=== PATIENT | female | born 1960 | race Caucasian/White ===

== ENCOUNTER 2017-05-15 07:00 | Outpatient (CLI) | payer SELFPAY ==
[~2017-05-15 07:00] MED LIST: HYDR25CA PO; IBUP-1986 PO; MELA3TAB PO
[2017-05-15 07:34] LABS: HEMOGLOBIN A1C 5.8 % (4.5-6.2)
[2017-05-15 08:29] LABS: CHOL/HDL RATIO 5.05 (0.00-4.99)
== END 2017-05-15 23:59 | disposition home or self-care (01) ==
LOC: HW HEART 07:00
DX: Z00.00 Encounter for general adult medical examination without abnormal findings (principal)
CPT/HCPCS: 36415

== ENCOUNTER 2018-08-15 08:33 | Outpatient (CLI) | payer MEDICARE ==
[2018-08-15 09:28] LABS: BASOPHILS % (AUTO) 0.7 % (0-1); EOSINOPHILS # (AUTO) 0.1 X10'3 (0-0.9); EOSINOPHILS % (AUTO) 1.3 % (0-6); HEMATOCRIT 41.5 % (35.0-45.0); HEMOGLOBIN 14.2 g/dl (12.0-16.0); LYMPHOCYTES # (AUTO) 2.7 X10'3 (1.1-4.8); LYMPHOCYTES % (AUTO) 49.4 % (21-51); MEAN CORPUSCULAR HGB CONC 34.1 g/dL (33.0-36.5); MEAN CORPUSCULAR VOLUME 90.7 FL (78-98); MEAN PLATELET VOLUME 7.1 FL (7.4-10.4); MONOCYTES # (AUTO) 0.4 X10'3 (0-0.9); MONOCYTES % (AUTO) 6.6 % (2-12); NEUTROPHILS # (AUTO) 2.3 X10'3 (1.8-7.7); PLATELET COUNT 252 X10'3 (140-440); RED BLOOD COUNT 4.57 X10'6 (4.20-5.60); RED CELL DISTRIBUTION WIDTH 12.9 % (11.5-14.5); WHITE BLOOD COUNT 5.4 X10'3 (4.5-11.0)
[2018-08-15 09:41] LABS: ALANINE AMINOTRANSFERASE 29 U/L (12-78); ALBUMIN 3.6 G/DL (3.4-5.0); ALBUMIN/GLOBULIN RATIO 1.1 (1.1-1.5); ALKALINE PHOSPHATASE 79 IU/L (46-116); ANION GAP 9 (8-16); ASPARTATE AMINO TRANSFERASE 17 U/L (10-37); BILIRUBIN,TOTAL 0.3 MG/DL (0.1-1.0); BLOOD UREA NITROGEN 18 MG/DL (7-18); BUN/CREATININE RATIO 19.1 (6.6-38.0); CALCIUM 9.2 MG/DL (8.5-10.1); CHLORIDE 106 MMOL/L (99-107); CREATININE 0.94 MG/DL (0.40-0.90); GLUCOSE 113 MG/DL (70-104); POTASSIUM 3.6 MMOL/L (3.5-5.1); SODIUM 140 MMOL/L (135-145); TOTAL PROTEIN 6.9 G/DL (6.4-8.2); eGFR 61 ML/MIN
[2018-08-15 09:46] LABS: PARTIAL THROMBOPLASTIN TIME 25 SECONDS (22-32)
== END 2018-08-15 23:59 | disposition home or self-care (01) ==
LOC: LAB 08:33
DX: D69.1 Qualitative platelet defects (principal)
CPT/HCPCS: 36415; 80053; 85025; 85576; 85610; 85730

== ENCOUNTER 2023-07-30 08:44 | Day surgery (SDC) | payer MEDICARE, MEDICAID ==
[2023-07-26 10:50] LABS: BASOPHILS % (AUTO) 0.5 % (0-1); EOSINOPHILS # (AUTO) 0.1 X10'3 (0-0.9); EOSINOPHILS % (AUTO) 1.2 % (0-6); LYMPHOCYTES # (AUTO) 3.1 X10'3 (1.1-4.8); LYMPHOCYTES % (AUTO) 44.4 % (21-51); MEAN CORPUSCULAR HEMOGLOBIN 32.3 PG (27.0-31.0); MEAN CORPUSCULAR HGB CONC 33.3 g/dL (33.0-36.5); MEAN CORPUSCULAR VOLUME 97.1 FL (78-98); MEAN PLATELET VOLUME 6.9 FL (7.4-10.4); MONOCYTES # (AUTO) 0.5 X10'3 (0-0.9); MONOCYTES % (AUTO) 6.7 % (2-12); NEUTROPHILS # (AUTO) 3.3 X10'3 (1.8-7.7); NEUTROPHILS % (AUTO) 47.2 % (42-75); PRE OP HEMOGLOBIN 13.6 g/dL (12.0-16.0); PRE OP PLATELET COUNT 245 X10'3 (140-440); PRE OP WHITE BLOOD COUNT 6.9 10'3 (4.8-10.8); RED BLOOD COUNT 4.22 X10'6 (4.20-5.60)
[2023-07-26 11:18] LABS: ALBUMIN 3.8 G/DL (3.4-5.0); ALBUMIN/GLOBULIN RATIO 1.2 (1.1-1.5); ALKALINE PHOSPHATASE 85 IU/L (46-116); BLOOD UREA NITROGEN 19 MG/DL (7-18); BUN/CREATININE RATIO 23.5 (10.0-20.0); CALCIUM 9.9 MG/DL (8.5-10.1); CHLORIDE 105 MMOL/L (99-107); CREATININE 0.81 MG/DL (0.40-0.90); PRE OP ALT 32 U/L (30-65); PRE OP ANION GAP 10 (8-16); PRE OP AST 22 U/L (10-37); PRE OP BILIRUB, TOTAL 0.3 MG/DL (0.0-1.0); PRE OP GLUCOSE 89 MG/DL (70-104); PRE OP POTASSIUM 4.3 MMOL/L (3.4-5.1); PRE OP SODIUM 143 MMOL/L (135-145); TOTAL CARBON DIOXIDE 28.1 MMOL/L (24-32); TOTAL PROTEIN 6.9 G/DL (6.4-8.2); eGFR 71 ML/MIN
[~2023-07-30] VITALS: Ht 172.7 cm; Wt 81.1 kg
[2023-07-30] MEDS: cefazolin 2gm/D5W 100mL 100 ML IV ONE (05:30)
[~2023-07-30 08:44] MED LIST changes: +BACL10TA2 PO; +GABA300T28 PO; +HYDR-3964 PO; -HYDR25CA PO; -IBUP-1986 PO; +LATA2.5D14 EACHEYE; -MELA3TAB PO; +MELA3TAB39 PO
[2023-07-30] MEDS: famotidine 20mg tablet PO ONE (09:25)
[2023-07-30] MEDS: ringers solution, lacted 1,000 ML IV SCH (09:26)
[2023-07-30 09:30] VITALS: BP 120/72; PULSE 69; RESP 16; TEMP 98.5; O2SAT 98
[2023-07-30] MEDS ORDERED: ondansetron/PF 4mg/2ml inj IV PRN (10:00)
[2023-07-30] MEDS ORDERED: morphine 4 MG/ML inj SYRINge IV PRN (10:00)
[2023-07-30] MEDS ORDERED: labetalol 20mg/4ml (5mg/ml) syringe IV PRN (10:00)
[2023-07-30] MEDS ORDERED: morphine 2 MG/ML inj. syringe IV PRN (10:00)
[2023-07-30] MEDS ORDERED: ringers solution, lacted 1,000 ML IV SCH (10:00)
[2023-07-30] MEDS ORDERED: propofol 10mg/ml 20ml vial IV ONE (10:01)
[2023-07-30] MEDS ORDERED: fentaNYL/PF 50MCG/1 ML 2ML syringe ONE (10:03)
[2023-07-30] MEDS ORDERED: midazolam 1 mg/ML 2ml injection ONE (10:04)
[2023-07-30] MEDS ORDERED: ondansetron/PF 4mg/2ml inj ONE (10:09)
[2023-07-30 10:30] VITALS: BP 103/53; PULSE 75; RESP 16; O2SAT 98
[2023-07-30] MEDS: LIDOcaine 2% (20mg/ml) 5ml vial ONE (10:37)
[2023-07-30] MEDS: BUPIVAcaine/PF 2.5mg/ml (0.25%) 10ml vial ONE (10:37)
[2023-07-30 10:40] VITALS: BP 105/58; PULSE 79; RESP 18; O2SAT 95
[2023-07-30 10:50] VITALS: BP 106/61; PULSE 65; RESP 14; O2SAT 94
[2023-07-30 11:00] VITALS: BP 116/67; PULSE 71; RESP 15; O2SAT 97
[2023-07-30 11:10] VITALS: BP 125/72; PULSE 71; RESP 15; O2SAT 97
== END 2023-07-30 11:30 | disposition home or self-care (01) ==
LOC: PAS 08:44
PROVIDERS: ATTEND Orthopaedic Surgery Hand Surgery
DX: G56.02 Carpal tunnel syndrome, left upper limb (principal); E78.00 Pure hypercholesterolemia, unspecified; G62.9 Polyneuropathy, unspecified; G47.33 Obstructive sleep apnea (adult) (pediatric); G43.909 Migraine, unspecified, not intractable, without status migrainosus; H40.9 Unspecified glaucoma; Z87.891 Personal history of nicotine dependence; Z79.1 Long term (current) use of non-steroidal anti-inflammatories (NSAID); Z79.891 Long term (current) use of opiate analgesic; Z79.899 Other long term (current) drug therapy; Z90.49 Acquired absence of other specified parts of digestive tract; Z90.710 Acquired absence of both cervix and uterus; Z90.721 Acquired absence of ovaries, unilateral; Z90.89 Acquired absence of other organs; Z98.51 Tubal ligation status; Z98.890 Other specified postprocedural states; Z88.1 Allergy status to other antibiotic agents; Z88.8 Allergy status to other drugs, medicaments and biological substances; Z83.3 Family history of diabetes mellitus; Z83.49 Family history of other endocrine, nutritional and metabolic diseases
CPT/HCPCS: 29848; 36415; 80053; 82948; 85025; J0690; J2250; J2405; J2704; J3010; J3490; J7030; J7120; Z7506; Z7512; A4215; A6449; A7000

== ENCOUNTER 2024-02-27 13:29 | Outpatient (CLI) | payer MEDICARE, MEDICAID | END 2024-02-27 23:59 | disposition home or self-care (01) | LOC: MRI02 13:29 | PROVIDERS: ATTEND Anesthesiology | DX: M47.817 Spondylosis without myelopathy or radiculopathy, lumbosacral region (principal); M53.3 Sacrococcygeal disorders, not elsewhere classified; M51.379 Other intervertebral disc degeneration, lumbosacral region without mention of lumbar back pain or lower extremity pain; M48.07 Spinal stenosis, lumbosacral region | CPT/HCPCS: 72148 ==

== ENCOUNTER 2024-05-04 18:18 | Emergency (ER) | payer MEDICARE, MEDICAID ==
[~2024-05-04] VITALS: Ht 172.7 cm; Wt 79.1 kg
[2024-05-04 18:51] LABS: EOSINOPHILS # (AUTO) 0.2 X10'3 (0-0.9); MONOCYTES # (AUTO) 0.7 X10'3 (0-0.9); NEUTROPHILS # (AUTO) 2.6 X10'3 (1.8-7.7); RED CELL DISTRIBUTION WIDTH 13.1 % (11.5-14.5); WHITE BLOOD COUNT 8.1 X10'3 (4.5-11.0)
[2024-05-04 18:53] LABS: BASOPHILS % (AUTO) 0.6 % (0-1); EOSINOPHILS % (AUTO) 2.2 % (0-6); HEMATOCRIT 42.8 % (35.0-45.0); HEMOGLOBIN 14.5 g/dl (12.0-16.0); LYMPHOCYTES # (AUTO) 4.5 X10'3 (1.1-4.8); LYMPHOCYTES % (AUTO) 56.2 % (21-51); MEAN CORPUSCULAR HEMOGLOBIN 32.4 PG (27.0-31.0); MEAN CORPUSCULAR HGB CONC 33.9 g/dL (33.0-36.5); MEAN CORPUSCULAR VOLUME 95.6 FL (78-98); MEAN PLATELET VOLUME 6.9 FL (7.4-10.4); MONOCYTES % (AUTO) 8.7 % (2-12); NEUTROPHILS % (AUTO) 32.3 % (42-75); PLATELET COUNT 280 X10'3 (140-440); RED BLOOD COUNT 4.47 X10'6 (4.20-5.60)
[2024-05-04 19:07] LABS: ALANINE AMINOTRANSFERASE 46 U/L (12-78); ALBUMIN 3.7 G/DL (3.4-5.0); ALBUMIN/GLOBULIN RATIO 0.9 (1.1-1.5); ALKALINE PHOSPHATASE 124 IU/L (46-116); ANION GAP 14 (8-16); ASPARTATE AMINO TRANSFERASE 26 U/L (10-37); BILIRUBIN,TOTAL 0.4 MG/DL (0.1-1.0); BLOOD UREA NITROGEN 17 MG/DL (7-18); BUN/CREATININE RATIO 17.5 (10.0-20.0); CALCIUM 10.2 MG/DL (8.5-10.1); CHLORIDE 104 MMOL/L (99-107); CREATININE 0.97 MG/DL (0.40-0.90); GLUCOSE 101 MG/DL (70-104); LIPASE 66 U/L (16-77); POTASSIUM 3.7 MMOL/L (3.5-5.1); SODIUM 143 MMOL/L (135-145); TOTAL CARBON DIOXIDE 25.2 MMOL/L (24-32); TOTAL PROTEIN 7.8 G/DL (6.4-8.2); eCRCL 58 ML/MIN; eGFR 58 ML/MIN
[2024-05-04 19:18] LABS: TOTAL CELLS COUNTED 100
[2024-05-04] MEDS: ketorolac trometh 15mg/ml vial 15 MG/ML ML IV ONE (19:22)
[2024-05-04] MEDS: ondansetron/PF 4mg/2ml inj IV ONE (19:22)
[2024-05-04] MEDS: morphine 4 MG/ML inj SYRINge IV ONE ×2 (19:22→20:08)
[2024-05-04] MEDS: normal saline 1000ML IV soln IVB ONE (19:33)
[2024-05-04] MEDS: acetaminophen 1,000mg/100ml IV 100 ML IV ONE (20:07)
[2024-05-04 21:05] LABS: BILIRUBIN,URINE NEGATIVE (Neg); CLARITY,URINE SLIGHTLY CLOUDY (Clear); COLOR,URINE YELLOW (Yellow); GLUCOSE, URINE NEGATIVE (Neg); KETONES,URINE 15 mg/dl (Neg); LEUKOCYTE ESTERASE ,URINE SMALL (Neg); NITRITES, URINE NEGATIVE (Neg); OCCULT BLOOD,URINE LARGE (Neg); PROTEIN,URINE NEGATIVE (Neg); URINE HCG NEGATIVE (NEG); UROBILINOGEN,URINE 0.2 E.U/dL (0.2-1.0)
[2024-05-04 21:09] LABS: UA COLLECTION TYPE CLN CATCH MIDSTREAM
[2024-05-04 21:10] LABS: BACTERIA,URINE FEW /HPF (Neg); RBC,URINE TNTC /HPF (0-2); SQUAMOUS EPITHELIAL CELL,UR FEW /LPF (FEW)
[2024-05-04 21:11] LABS: CAL OXALATE CRYSTALS FEW /HPF (NEGATIVE)
[2024-05-04 21:22] LABS: URINE AMPHETAMINE SCREEN NEGATIVE (Neg); URINE BARBITUATE SCREEN NEGATIVE (Neg); URINE BENZODIAZEPINES SCREEN NEGATIVE (Neg); URINE CANNABINOID SCREEN NEGATIVE (Neg); URINE COCAINE SCREEN NEGATIVE (Neg); URINE METHADONE SCREEN NEGATIVE (Neg); URINE OPIATE SCREEN POSITIVE (Neg); URINE PHENCYCLIDINE SCREEN NEGATIVE (Neg)
[2024-05-04] MEDS ORDERED: ONDA-245 PO (21:58)
[2024-05-04] MEDS ORDERED: HYDR-3965 PO (21:58)
[2024-05-04] MEDS ORDERED: FLO0.4C PO (21:58)
[2024-05-04] MEDS: oxyCODONE IR 5mg (immed. release) tablet PO ONE (22:24)
[2024-05-04 22:27] VITALS: BP 123/87; PULSE 87; RESP 15; TEMP 98.8; O2SAT 100
== END 2024-05-04 22:29 | disposition home or self-care (01) ==
LOC: ER 18:19
DX: N20.0 Calculus of kidney (principal); Z88.1 Allergy status to other antibiotic agents; Z88.8 Allergy status to other drugs, medicaments and biological substances; Z79.899 Other long term (current) drug therapy
CPT/HCPCS: 74176; 80053; 80305; 81001; 81025; 83690; 85007; 85025; 87088; 96374; 96375; 96376; 99285; J0131; J1885; J2270; J2405; J7030

== ENCOUNTER 2024-05-06 06:33 | Inpatient (IN) | payer MEDICARE, MEDICAID ==
[~2024-05-06] VITALS: Ht 172.7 cm; Wt 82.3 kg
[2024-05-06] VITALS (22 sets, daily range): BP systolic 93–130; BP diastolic 36–73; PULSE 75–98; RESP 12–22; TEMP 98.6–99.9; O2SAT 90–100
[~2024-05-06 06:33] MED LIST changes: +FLO0.4C PO; +HYDR-3965 PO; +ONDA-245 PO
[2024-05-06 08:34] LABS: BASOPHILS % (AUTO) 0.3 % (0-1); EOSINOPHILS % (AUTO) 0.3 % (0-6); HEMOGLOBIN 13.4 g/dl (12.0-16.0); MEAN CORPUSCULAR HEMOGLOBIN 32.2 PG (27.0-31.0); NEUTROPHILS # (AUTO) 10.7 X10'3 (1.8-7.7)
[2024-05-06 08:35] LABS: HEMATOCRIT 39.9 % (35.0-45.0); LYMPHOCYTES # (AUTO) 2.6 X10'3 (1.1-4.8); LYMPHOCYTES % (AUTO) 18.2 % (21-51); MEAN CORPUSCULAR HGB CONC 33.7 g/dL (33.0-36.5); MEAN CORPUSCULAR VOLUME 95.5 FL (78-98); MEAN PLATELET VOLUME 7.4 FL (7.4-10.4); MONOCYTES # (AUTO) 0.9 X10'3 (0-0.9); NEUTROPHILS % (AUTO) 75.2 % (42-75); PLATELET COUNT 234 X10'3 (140-440); RED BLOOD COUNT 4.18 X10'6 (4.20-5.60); RED CELL DISTRIBUTION WIDTH 13.3 % (11.5-14.5); WHITE BLOOD COUNT 14.2 X10'3 (4.5-11.0)
[2024-05-06] MEDS: normal saline 1000ML IV soln IVB ONE (08:56)
[2024-05-06 08:57] LABS: ALANINE AMINOTRANSFERASE 35 U/L (12-78); ALBUMIN 3.6 G/DL (3.4-5.0); ALBUMIN/GLOBULIN RATIO 0.9 (1.1-1.5); ALKALINE PHOSPHATASE 114 IU/L (46-116); AMYLASE 47 U/L (25-115); ANION GAP 11 (8-16); ASPARTATE AMINO TRANSFERASE 24 U/L (10-37); BILIRUBIN,TOTAL 0.8 MG/DL (0.1-1.0); BLOOD UREA NITROGEN 17 MG/DL (7-18); BUN/CREATININE RATIO 19.8 (10.0-20.0); CHLORIDE 103 MMOL/L (99-107); CREATININE 0.86 MG/DL (0.40-0.90); GLUCOSE 115 MG/DL (70-104); LIPASE 35 U/L (16-77); POTASSIUM 3.9 MMOL/L (3.5-5.1); SODIUM 138 MMOL/L (135-145); TOTAL CARBON DIOXIDE 24.3 MMOL/L (24-32); TOTAL PROTEIN 7.4 G/DL (6.4-8.2); eCRCL 66 ML/MIN; eGFR 66 ML/MIN
[2024-05-06 08:59] LABS: PLATELET ESTIMATE NORMAL
[2024-05-06] MEDS: ondansetron/PF 4mg/2ml inj IV ONE (09:10)
[2024-05-06] MEDS: ketorolac trometh 15mg/ml vial 15 MG/ML ML IV ONE (09:10)
[2024-05-06] MEDS: morphine 2 MG/ML inj. syringe IV ONE ×2 (09:11→09:25)
[2024-05-06] MEDS ORDERED: mag hydrox/Alum hydrox/simeth 30ml oral suspension PO PRN (11:30)
[2024-05-06] MEDS ORDERED: ondansetron/PF 4mg/2ml inj IV PRN ×3 (11:30→15:40)
[2024-05-06] MEDS ORDERED: acetaminophen 325mg tablet PO PRN ×2 (11:30→12:15)
[2024-05-06] MEDS ORDERED: magnesium hydroxide 30ml (MOM) UD suspension PO PRN (11:30)
[2024-05-06 12:08] LABS: BILIRUBIN,URINE NEGATIVE (Neg); CLARITY,URINE CLOUDY (Clear); COLOR,URINE BROWN (Yellow); GLUCOSE, URINE NEGATIVE (Neg); KETONES,URINE 40 mg/dl (Neg); LEUKOCYTE ESTERASE ,URINE NEGATIVE (Neg); NITRITES, URINE NEGATIVE (Neg); OCCULT BLOOD,URINE LARGE (Neg); PH,URINE 5.5 (4.8-8.0); PROTEIN,URINE 30 mg/dl (Neg); UROBILINOGEN,URINE 0.2 E.U/dL (0.2-1.0)
[2024-05-06 12:10] LABS: UA COLLECTION TYPE CLN CATCH MIDSTREAM
[2024-05-06] MEDS ORDERED: metoclopramide 5 mg/ml inj IV PRN (12:15)
[2024-05-06] MEDS ORDERED: morphine 2 MG/ML inj. syringe IV PRN ×2 (12:15→15:40)
[2024-05-06 12:22] LABS: BACTERIA,URINE 1+ /HPF (Neg); RBC,URINE TNTC /HPF (0-2); SQUAMOUS EPITHELIAL CELL,UR FEW /LPF (FEW)
[2024-05-06] MEDS: normal saline 1000ml 1,000 ML IV SCH (13:03)
[2024-05-06 13:22] LABS: APTT 26 SECONDS (22-32); PROTHROMBIN TIME 10.4 SECONDS (9.0-12.0)
[2024-05-06] MEDS: morphine 2 MG/ML inj. syringe IV PRN (14:37)
[2024-05-06] MEDS ORDERED: iohexol 300 MG/1 ML 50ml polymer ONE (14:43)
[2024-05-06] MEDS: aprepitant 40mg capsule PO ONE (15:34)
[2024-05-06] MEDS ORDERED: fentaNYL/PF 50MCG/1 ML 2ML syringe ONE (15:34)
[2024-05-06] MEDS ORDERED: sevoflurane 250ml liquid IH ONE (15:34)
[2024-05-06] MEDS ORDERED: labetalol 20mg/4ml (5mg/ml) syringe IV PRN (15:40)
[2024-05-06] MEDS ORDERED: meperidine/PF 25mg/ml syringe IV PRN (15:40)
[2024-05-06] MEDS ORDERED: proCHLORperazine 10 MG/2 ml inj IV PRN (15:40)
[2024-05-06] MEDS ORDERED: hydrALAZINE 20mg/ml inj. IV PRN (15:40)
[2024-05-06] MEDS ORDERED: acetaminophen 1,000mg/100ml IV 100 ML IV PRN (15:40)
[2024-05-06] MEDS ORDERED: HYDROmorphone/PF 0.2 MG/ML SYRINGE IV PRN ×2 (15:40)
[2024-05-06] MEDS ORDERED: morphine 4 MG/ML inj SYRINge IV PRN (15:40)
[2024-05-06] MEDS: ringers solution, lacted 1,000 ML IV SCH (15:40)
[2024-05-06] MEDS: piperacillin/tazo 4.5gm/100ml 100 ML IV SCH (16:00)
[2024-05-06] MEDS: iohexol 300 MG/1 ML 10ml vial IV ONE (16:02)
[2024-05-06] MEDS ORDERED: CEPH-585 PO (16:19)
[2024-05-06] MEDS ORDERED: GABA300C PO (20:25)
[2024-05-06] MEDS ORDERED: GABAPENTIN 300 MG PO SCH (21:00)
[2024-05-06] MEDS: gabapentin 300mg capsule PO SCH (21:17)
[2024-05-06] MEDS: Melatonin 3mg tablet PO SCH (21:17)
[2024-05-06] MEDS: baclofen 10mg tablet PO SCH (21:17)
[2024-05-06] MEDS: docusate sod 100mg capsule PO SCH (21:17)
[2024-05-06] MEDS: tamsulosin 0.4mg capsule PO SCH (21:17)
[2024-05-06] MEDS: HYDROcodone/acetaminophen 5mg/325mg tablet PO PRN (22:39)
[2024-05-07] VITALS (7 sets, daily range): BP systolic 96–104; BP diastolic 47–53; PULSE 67–82; RESP 13–16; TEMP 97.3–98.3; O2SAT 95–96
[2024-05-07] MEDS: latanoprost 0.005% 2.5ml ophthalmic drops EACHEYE SCH (00:42)
[2024-05-07 04:58] LABS: BASOPHILS % (AUTO) 0.1 % (0-1); EOSINOPHILS % (AUTO) 0.2 % (0-6); HEMATOCRIT 34.5 % (35.0-45.0); HEMOGLOBIN 11.6 g/dl (12.0-16.0); LYMPHOCYTES # (AUTO) 1.1 X10'3 (1.1-4.8); LYMPHOCYTES % (AUTO) 15.6 % (21-51); MEAN CORPUSCULAR HEMOGLOBIN 32.4 PG (27.0-31.0); MEAN CORPUSCULAR HGB CONC 33.7 g/dL (33.0-36.5); MEAN CORPUSCULAR VOLUME 96.2 FL (78-98); MEAN PLATELET VOLUME 7.1 FL (7.4-10.4); MONOCYTES # (AUTO) 0.4 X10'3 (0-0.9); MONOCYTES % (AUTO) 5.1 % (2-12); NEUTROPHILS # (AUTO) 5.7 X10'3 (1.8-7.7); PLATELET COUNT 190 X10'3 (140-440); RED BLOOD COUNT 3.58 X10'6 (4.20-5.60); RED CELL DISTRIBUTION WIDTH 13.1 % (11.5-14.5); WHITE BLOOD COUNT 7.2 X10'3 (4.5-11.0)
[2024-05-07 05:14] LABS: ALANINE AMINOTRANSFERASE 49 U/L (12-78); ALBUMIN 2.8 G/DL (3.4-5.0); ALBUMIN/GLOBULIN RATIO 0.8 (1.1-1.5); ALKALINE PHOSPHATASE 94 IU/L (46-116); ANION GAP 7 (8-16); ASPARTATE AMINO TRANSFERASE 39 U/L (10-37); BILIRUBIN,TOTAL 0.6 MG/DL (0.1-1.0); BLOOD UREA NITROGEN 17 MG/DL (7-18); CALCIUM 9.3 MG/DL (8.5-10.1); CHLORIDE 107 MMOL/L (99-107); CREATININE 0.85 MG/DL (0.40-0.90); GLUCOSE 128 MG/DL (70-104); SODIUM 139 MMOL/L (135-145); TOTAL CARBON DIOXIDE 25.3 MMOL/L (24-32); TOTAL PROTEIN 6.5 G/DL (6.4-8.2); eCRCL 67 ML/MIN; eGFR 67 ML/MIN
[2024-05-07] MEDS: enoxaparin 40mg/0.4ml syringe SUBCUT SCH (07:59)
[2024-05-07] MEDS: HYDROcodone/acetaminophen 5mg/325mg tablet PO PRN (08:57)
[2024-05-07] MEDS ORDERED: HYDROcodone/acetaminophen 5mg/325mg tablet PO PRN (10:35)
[2024-05-07] MEDS: metoclopramide 5 mg/ml inj IV ONE (12:37)
[2024-05-07] MEDS: diphenhydrAMINE 25 MG/10 ML UD oral solution PO ONE (12:45)
[2024-05-07] MEDS: acetaminophen 1,000mg/100ml IV 100 ML IV ONE (12:47)
[2024-05-07] MEDS ORDERED: LACT1CAP65 PO (17:40)
[2024-05-07] MEDS ORDERED: OMEP20CA15 PO (17:40)
[2024-05-07] MEDS ORDERED: CEPH-585 PO (17:42)
== END 2024-05-07 19:30 | disposition home or self-care (01) | DRG 660 ==
LOC: ER 06:34 → ED HOLD 11:30 → SUR 3N 18:53
PROVIDERS: ADMIT Family Medicine; ATTEND Family Medicine
PROC: BT1D1ZZ Fluoroscopy of Right Kidney, Ureter and Bladder using Low Osmolar Contrast (ICD-10-PCS; 2024-05-06)
PROC: 0T768DZ Dilation of Right Ureter with Intraluminal Device, Via Natural or Artificial Opening Endoscopic (ICD-10-PCS; principal; 2024-05-06 15:34)
DX: N13.2 Hydronephrosis with renal and ureteral calculous obstruction (principal); R65.10 Systemic inflammatory response syndrome (SIRS) of non-infectious origin without acute organ dysfunction; G43.909 Migraine, unspecified, not intractable, without status migrainosus; G62.9 Polyneuropathy, unspecified; N18.30 Chronic kidney disease, stage 3 unspecified; Z88.8 Allergy status to other drugs, medicaments and biological substances; Z79.899 Other long term (current) drug therapy; Z88.1 Allergy status to other antibiotic agents
CPT/HCPCS: 36415; 71045; 74176; 74420; 76000; 80053; 80305; 81001; 81025; 82150; 83605; 83690; 84145; 84484; 85007; 85008; 85025; 85610; 85730; 86885; 86900; 86901; 87040; 87081; 87088; 93005; 99285; A4615; A4618; A6446; A6449; C2617; G0378; J0131; J1100; J1650; J1885; J2003; J2250; J2270; J2405; J2543; J2704; J2765; J3010; J7030; J8501; Q0163; Q9967